=== PATIENT | male | born 2005 | race Caucasian/White ===

== ENCOUNTER 2023-01-03 23:05 | Emergency (ER) | payer SELFPAY ==
[~2023-01-03 23:05] MED LIST: Iopamidol-370 76% 500 ML 1 ML ONE
[2023-01-03] MEDS ORDERED: Morphine 4 MG/ML VIAL ONE (23:36)
[2023-01-03] MEDS ORDERED: HYDROmorphone 0.5 MG/0.5 ML SYRINGE ONE (23:54)
[2023-01-04] MEDS ORDERED: Ondansetron PF 4 MG/2 ML Vial ONE (00:36)
[2023-01-04] MEDS ORDERED: Propofol 1,000 MG/100 ML VIAL IV ONE (01:03)
[2023-01-04] MEDS ORDERED: Ketamine 50 MG/ML (10ML VIAL) ONE (01:03)
[2023-01-04] MEDS ORDERED: PROPOFOL 20 ML ONE (01:06)
== END 2023-01-04 03:04 | disposition home or self-care (01) ==
LOC: EDBD 23:05 → ERS 23:05
DX: S83.115A Anterior dislocation of proximal end of tibia, left knee, initial encounter (principal); F17.290 Nicotine dependence, other tobacco product, uncomplicated; X50.1XXA Overexertion from prolonged static or awkward postures, initial encounter; Y93.67 Activity, basketball
CPT/HCPCS: 27550; 96374; 96375; J1170; J2270; J2405; J2704; Q9967